=== PATIENT | female | born 1950 | race Caucasian/White ===

== ENCOUNTER → 2017-08-14 | Outpatient (CLI) | payer BC | LOC: PLD 10:25 → LAB SHORT 10:25 | DX: L82.1 Other seborrheic keratosis (principal) | CPT/HCPCS: 88305 ==

== ENCOUNTER 2017-08-16 07:19 | Day surgery (SDC) | payer BC | END 2017-08-16 23:01 | disposition home or self-care (01) | LOC: MOI US 07:19 | PROC: 0HBV3ZX Excision of Bilateral Breast, Percutaneous Approach, Diagnostic (ICD-10-PCS; principal; 2017-08-16) | DX: C50.911 Malignant neoplasm of unspecified site of right female breast (principal); Z17.1 Estrogen receptor negative status [ER-] | CPT/HCPCS: 19083; 77066; 88305; 88360; A4648; G0279 ==

== ENCOUNTER 2017-09-04 06:23 | Day surgery (SDC) | payer BC ==
[~2017-09-04] VITALS: Ht 162.6 cm; Wt 76.2 kg
[~2017-09-04 06:23] MED LIST: Budeprion Xl300 MG PO
== END 2017-09-04 22:48 | disposition home or self-care (01) ==
LOC: ORSCMMR 06:23 → ORD 09:00 → ORSCMMR 22:48
PROVIDERS: Surgery
PROC: B5181ZA Fluoroscopy of Superior Vena Cava using Low Osmolar Contrast, Guidance (ICD-10-PCS; principal; 2017-09-04 09:00)
PROC: 02HV33Z Insertion of Infusion Device into Superior Vena Cava, Percutaneous Approach (ICD-10-PCS; principal; 2017-09-04 09:00)
DX: C50.811 Malignant neoplasm of overlapping sites of right female breast (principal); F17.210 Nicotine dependence, cigarettes, uncomplicated
CPT/HCPCS: 77001; C1788; J0690; J1100; J1642; J2250; J2370; J2405; J3010; J7120

== ENCOUNTER 2018-02-14 08:19 | Day surgery (SDC) | payer OTHER ==
[2018-02-14] MEDS ORDERED: Omeprazole20 M1 PO (14:12)
[2018-02-14] MEDS ORDERED: Advil200 M1 PO (14:13)
== END 2018-02-14 23:10 | disposition home or self-care (01) ==
LOC: MOI US 08:19
DX: N63.20 Unspecified lump in the left breast, unspecified quadrant (principal)
CPT/HCPCS: 19285; 77065

== ENCOUNTER 2018-02-21 07:56 | Day surgery (SDC) | payer OTHER ==
[~2018-02-21] VITALS: Ht 162.6 cm; Wt 64.9 kg
[~2018-02-21 07:56] MED LIST changes: +Advil200 M1 PO; +Omeprazole20 M1 PO
--- NOTE | 2018-02-21 10:14 | NUR ---
02/21/18 Jam4 Mick Mensah FIRST ATTMP BY RN IN LEFT FOREARM WAS UNSUCCESSFUL. SECOND ATTEMP IN AC WORKS WELL. PT TOLERATED PROCEDURE WELL.
--- NOTE | 2018-02-21 14:35 | NUR ---
02/21/18 1435 Matthew Maravilla PATIENT INTO SDU RECLINER RESTING, REPORTS 8/10 PAIN AT SURGICAL SITE, PER MD ORDERS GAVE IV PAIN MEDICATION. PATIENT VSS, TOLERATING PO FLUIDS. WILL CONTINUE TO MONITOR
== END 2018-02-21 16:30 | disposition home or self-care (01) ==
LOC: ORSCSDS 07:56 → RAD 08:30 → NM 09:00 → ORSCSDS 16:30
PROVIDERS: Surgery
PROC: 0HTT0ZZ Resection of Right Breast, Open Approach (ICD-10-PCS; principal; 2018-02-21 10:00)
PROC: 07B50ZX Excision of Right Axillary Lymphatic, Open Approach, Diagnostic (ICD-10-PCS; principal; 2018-02-21 10:00)
PROC: 0HBU0ZX Excision of Left Breast, Open Approach, Diagnostic (ICD-10-PCS; principal; 2018-02-21 10:00)
DX: C50.811 Malignant neoplasm of overlapping sites of right female breast (principal); N63.20 Unspecified lump in the left breast, unspecified quadrant; Z79.899 Other long term (current) drug therapy
CPT/HCPCS: 38792; 76098; 88305; 88307; 88342; A9520; J0690; J1100; J2250; J2370; J2405; J3010

== ENCOUNTER 2018-12-03 06:27 | Day surgery (SDC) | payer OTHER ==
[~2018-12-03] VITALS: Ht 162.6 cm; Wt 155.8 kg
[~2018-12-03 06:27] MED LIST changes: +ABILIFY MYCITE2 MG PO
--- NOTE | 2018-12-03 07:08 | NUR ---
12/03/18 0708 Mick Mensah PT RESTING COMFORTABLY WITH DAUGHTER AT BEDSIDE. CALL LIGHT WITHIN REACH.
--- NOTE | 2018-12-03 08:43 | NUR ---
12/03/18 0843 Ernestina Brooke IV WAS REMOVED IN OR. IV SITE DRESSING D.I
== END 2018-12-03 08:39 | disposition home or self-care (01) ==
LOC: ORSCSDS 06:27
PROVIDERS: Surgery
PROC: 0JPV0WZ Removal of Totally Implantable Vascular Access Device from Upper Extremity Subcutaneous Tissue and Fascia, Open Approach (ICD-10-PCS; principal; 2018-12-03 07:30)
DX: Z45.2 Encounter for adjustment and management of vascular access device (principal); Z85.3 Personal history of malignant neoplasm of breast; I10 Essential (primary) hypertension; F41.9 Anxiety disorder, unspecified; Z79.899 Other long term (current) drug therapy
CPT/HCPCS: J2250; J2704; J7120

== ENCOUNTER 2022-12-29 15:02 | Emergency (ER) | payer OTHER ==
[~2022-12-29] VITALS: Ht 170.2 cm; Wt 65.8 kg
[2022-12-29 18:00] VITALS: BP 103/75
[2022-12-29] MEDS ORDERED: CEPH500 PO (18:06)
== END 2022-12-29 18:31 | disposition home or self-care (01) ==
LOC: ER 15:02
DX: S01.511A Laceration without foreign body of lip, initial encounter (principal); M54.6 Pain in thoracic spine; W18.30XA Fall on same level, unspecified, initial encounter; F17.200 Nicotine dependence, unspecified, uncomplicated
CPT/HCPCS: 12011; 70450; 70486; 71045; 72070; 72100; 72170; 99283-25; A9270

== ENCOUNTER → 2024-04-13 | Outpatient (CLI) | payer OTHER ==
[~2024-04-13] MED LIST changes: +CEPH500 PO; +OLME20 PO; +TIMO.25OPS BOTHEYES
[2024-04-13 13:36] LABS: Albumin, Blood 2.5 g/dL (3.4-5.0); Albumin/Globulin Ratio 0.6 (0.8-1.8); Bun/Creatinine Ratio 9.3 (12.0-20.0); Calcium, Blood 9.5 mg/dL (8.5-10.1); Creatinine, Blood 0.97 mg/dL (0.40-1.00); Globulin, Blood 4.1 g/dL (2.2-4.0); Potassium, Blood 3.7 mmol/L (3.5-5.5); Total Protein, Blood 6.6 g/dL (6.4-8.2)
[2024-04-13 14:37] LABS: BASOPHILS ABSOLUTE AUTO 0.03 K/mm3 (0.00-0.23); BASOPHILS PERCENT AUTO 0 % (0-2); EOSINOPHILS PERCENT AUTO 0 % (0-6); Hematocrit 37.7 % (33.0-51.0); IMMATURE GRAN ABSOLUTE AUTO 0.07 K/mm3 (0.00-0.10); IMMATURE GRAN PERCENT AUTO 1 % (0-1); LYMPHOCYTES ABSOLUTE AUTO 1.07 K/mm3 (0.84-5.20); LYMPHOCYTES PERCENT AUTO 9 % (21-46); MONOCYTES ABSOLUTE AUTO 1.17 K/mm3 (0.16-1.47); MONOCYTES PERCENT AUTO 10 % (4-13); Mean Corpuscular Volume 87 fL (80-100); NEUTROPHILS PERCENT AUTO 80 % (41-73); Platelet Count 228 K/mm3 (150-400); RDW Coefficient Variation 11.5 % (11.7-14.2); RDW Standard Deviation 37.1 fL (35.1-46.3); Red Blood Cell Count 4.33 M/mm3 (3.80-5.20); White Blood Cell Count 11.74 K/mm3 (4.00-11.30)
== END ==
LOC: LAB SHORT 13:16 → LAB 13:16
PROVIDERS: Family Medicine
DX: E86.0 Dehydration (principal)
CPT/HCPCS: 80053; 85025

== ENCOUNTER 2024-04-14 15:52 | Inpatient (IN) | payer OTHER ==
[~2024-04-14] VITALS: Ht 162.6 cm; Wt 75.0 kg
[~2024-04-14 15:52] MED LIST changes: -AMOCLA875 PO; -DOXY100 PO; -FURO20 PO; -OLME20 PO; -Prednisone20 MG PO; -TIMO.25OPS BOTHEYES
[2024-04-14] MEDS ORDERED: CefTRIAXone Sodium 1,000 MG in NS 100 ML IV ONE (16:50)
[2024-04-14] MEDS ORDERED: NS 1,000 ML IV SCH ×2 (19:50→20:40)
[2024-04-14] MEDS ORDERED: Ipratropium/Albuterol SulF 2.5-0.5MG/3 ML Amp INH SCH (20:35)
[2024-04-14] MEDS ORDERED: Albuterol 2.5 MG/3 ML VIAL INH PRN (20:40)
[2024-04-14] MEDS ORDERED: LORazepam 1 MG Tab PO PRN (20:40)
[2024-04-14] MEDS ORDERED: Ondansetron HCl 2 MG / ML 2ML Vial IV PRN (20:40)
[2024-04-14] MEDS ORDERED: Magnesium Sulf 2 GM/Water 50ML 50 ML IV STA (20:43)
[2024-04-14] MEDS ORDERED: Guaifenesin/Dextromethorphan Syrup 5 ML UDC PO PRN (20:45)
[2024-04-14] MEDS ORDERED: NS 500 ML IV ONE (21:00)
[2024-04-14] MEDS ORDERED: Potassium Chloride 20 MEQ TabCR PO ONE (21:00)
[2024-04-14] MEDS ORDERED: CefTRIAXone Sodium 1,000 MG in NS 100 ML IV SCH ×2 (21:35→21:43)
[2024-04-14] MEDS ORDERED: Azithromycin 500 MG in NS 250 ML IV SCH (21:44)
[2024-04-14 22:37] LABS: CORONAVIRUS COVID-19 AG Negative (NEGATIVE); INFLUENZA A AG Negative (NEGATIVE); INFLUENZA B AG Negative (NEGATIVE)
[2024-04-14 22:49] LABS: Base Excess Venous -8.2 mmol/L; Bicarbonate Venous 18.8 mmol/L (24.0-30.0); PCO2 Venous 29.7 mmHg (38-42); pH Blood Venous 7.37 (7.34-7.37)
[2024-04-14 23:04] VITALS: BP 151/83
[2024-04-14] MEDS ORDERED: TIMO.25OPS BOTHEYES ×2 (23:20)
[2024-04-14] MEDS ORDERED: OLME20 PO ×2 (23:21)
[2024-04-15] VITALS (9 sets, daily range): BP systolic 132–173; BP diastolic 75–98
[2024-04-15] MEDS ORDERED: MethylPREDNISolone Sod Succ 125 MG Vial IV SCH
--- NOTE | 2024-04-15 01:11 | NUR ---
ADMIT NOTE FOR 04/14/24 7152 REPORT WAS RECEIVED FROM THE ER. PT WAS BROUGHT DOWN ON THE GURNEY AND TRANSFERRED TO THE BED IN ROOM 357. PT ALERT ORIENTED X 4 ABLE TO VERBALIZE NEEDS. SHES VERY SOB WITH ANY TYPE OF EXERTION. I CHANGED HER BRIEF AND SHE DESATTED DOWN TO 75% ON 8L VIA NC. I CHANGED HER OVER TO A OXIMASK ON 6L AND SHES SATTING AT 90%. SHE C/O ANXIETY MEDICATED WITH ATIVAN WITH LITTLE RELIEF. LUNG SOUNDS WITH EXPIRATORY WHEEZES AND SHES USING HERABD MUSCLES TO BREATHE AND IS VERY TACHPNEIC. SHE REMAINS ON A CONTINUOUS PULSE OX. SHE WAS GIVEN A DOSE OF ROCEPHIN AND ZITHROMAX. RT IN TO GIVE HER A HHN TX. CONTINUES WITH A NONPRODUCTIVE COUGH AND CONGESTION. RESTING IN BED AT THIS TIME WITH CALL LIGHT IN REACH
[2024-04-15 01:41] LABS: Calcium, Blood 9.7 mg/dL (8.5-10.1); Creatinine, Blood 0.52 mg/dL (0.40-1.00); Potassium, Blood 4.1 mmol/L (3.5-5.5)
[2024-04-15] MEDS ORDERED: MethylPREDNISolone Sod Succ 125 MG Vial ONE ×2 (02:10→02:14)
[2024-04-15] MEDS ORDERED: MethylPREDNISolone Sod Succ 125 MG Vial IV ONE (02:15)
--- NOTE | 2024-04-15 02:25 | NUR ---
ASSUMPTION NOTE: THIS RN TO ASSUME CARE OF PATIENT THAT WAS A RAPID RESPONSE FROM MEDICAL FLOOR 357. PATIENT BROUGHT DOWN VIA BED ON BIPAP MACHINE ALERT AND ORIENTED X4. IS ABLE TO MAKE NEEDS KNOWN AND USES CALL LIGHT APPROIRATELY. PATIENT HAS A AUDIBLE EXPIRATORY WHEEZE AND DIMINSHED IN THE BASES. PATIENT IS ON TELE SHOWING SINUS RYTHM WITH RATE 94, DENIES CHEST PAIN/PRESSURE. PATIENT HAS BEEN COUGHING OFF AND ON SINCE ARRIVAL AND STATES SHE HAS HAD THE COUGH FOR SEVERAL DAYS NOW. PATIENT STATES SHE IS CONTINENT OF BOTH BOWL AND URINE, NOTIFIED THAT SHE WILL STAY BEDREST CURERNTLY DUE TO PATIENT DESATTING WITH EXERTION. A PUREWICK WAS OFFERED AND PATIENT OPTED TO USE A BED CALDERON FOR NOW. PATIENT IS SLEEPING CURRENTLY, CALL LIGHT WITHIN REACH AND BED IN LOWEST POSITION.
[2024-04-15 02:40] LABS: Albumin, Blood 2.3 g/dL (3.4-5.0); Albumin/Globulin Ratio 0.6 (0.8-1.8); Bilirubin, Total 0.6 mg/dL (0.1-1.0); Total Protein, Blood 6.3 g/dL (6.4-8.2)
--- NOTE | 2024-04-15 02:40 | NUR ---
AT 0207 I WENT INTO THE PTS ROOM AND SHE WAS DESATTING DOWN TO 83% ON 10l VIA OXIMASK. SHE WAS ALSO VERY DIAPHORETIC AND HAVING A HARD TIME BREATHING. SHE WAS TACHPNEIC AND USING HER ACCESSORY MUSCLES TO BREATHE. WE TRIED TO UP HER OXYGEN AND SHE REMAINED HAVING TROUBLE BREATHING AND WAS DIAPHORETIC. WE CALLED A RAPID RESPONSE AND THE RESPONSE TEAM CAME UP TO SEE THE PT. AFTER EVALUATION SHE WAS PUT ON A BIPAP MACHINE AND TRANSFERRED TO PCU ROOM 19. I WENT DOWN TO PCU AND GAVE THE NURSE REPORT.
--- NOTE | 2024-04-15 03:03 | NUR ---
MD TO BEDSIDE: MD CAME TO BEDSIDE ONCE PAIENT WAS SETTLED IN, THIS RN NOTIFIED THAT PATIENT'S BLOOD PRESSURE HAS BEEN ELEVATED AND THE LAST BLOOD PRESSURE WAS SYSTOLIC IN THE 150'S AND PATIENT TAKES HOME MEDICATIONS FOR HYPERTENSION. MED REC HAS BEEN COMPLETED AND MD NOTIFIED. STATED "WE WILL LEAVE IT FOR NOW". PATIENT RESTING WITH THE BIPAP MASK ON, HAS CALL LIGHT WITHIN REACH AND BED IN LOWEST POSITION, STATING SHE IS NOT NEEDING ANYTHING AT THIS MOMENT.
[2024-04-15] MEDS ORDERED: Piperacillin/Tazobactam Sod 4.5 GM in NS 100 ML IV SCH (04:07)
[2024-04-15] MEDS ORDERED: Vancomycin HCL 2,000 MG in NS 500 ML IV ONE (04:15)
[2024-04-15 04:30] LABS: BASOPHILS ABSOLUTE AUTO 0.04 K/mm3 (0.00-0.23); BASOPHILS PERCENT AUTO 0 % (0-2); EOSINOPHILS PERCENT AUTO 0 % (0-6); Hematocrit 35.3 % (33.0-51.0); IMMATURE GRAN ABSOLUTE AUTO 0.11 K/mm3 (0.00-0.10); IMMATURE GRAN PERCENT AUTO 1 % (0-1); LYMPHOCYTES ABSOLUTE AUTO 0.58 K/mm3 (0.84-5.20); LYMPHOCYTES PERCENT AUTO 4 % (21-46); MONOCYTES ABSOLUTE AUTO 1.22 K/mm3 (0.16-1.47); MONOCYTES PERCENT AUTO 7 % (4-13); Mean Corpuscular Volume 87 fL (80-100); Mean Platelet Volume 9.9 fL (9.1-12.4); NEUTROPHILS ABSOLUTE AUTO 14.76 K/mm3 (1.96-9.15); NEUTROPHILS PERCENT AUTO 88 % (41-73); Platelet Count 255 K/mm3 (150-400); RDW Coefficient Variation 11.7 % (11.7-14.2); RDW Standard Deviation 37.8 fL (35.1-46.3); Red Blood Cell Count 4.04 M/mm3 (3.80-5.20); White Blood Cell Count 16.71 K/mm3 (4.00-11.30)
[2024-04-15 05:07] LABS: Base Excess Venous -6.8 mmol/L; PCO2 Venous 33.9 mmHg (38-42); pH Blood Venous 7.35 (7.34-7.37)
[2024-04-15 05:15] LABS: BASOPHILS ABSOLUTE AUTO 0.02 K/mm3 (0.00-0.23); BASOPHILS PERCENT AUTO 0 % (0-2); EOSINOPHILS PERCENT AUTO 0 % (0-6); Hematocrit 34.5 % (33.0-51.0); Hemoglobin 12.8 g/dL (11.5-16.0); IMMATURE GRAN ABSOLUTE AUTO 0.09 K/mm3 (0.00-0.10); IMMATURE GRAN PERCENT AUTO 1 % (0-1); LYMPHOCYTES ABSOLUTE AUTO 0.46 K/mm3 (0.84-5.20); LYMPHOCYTES PERCENT AUTO 4 % (21-46); MONOCYTES ABSOLUTE AUTO 0.52 K/mm3 (0.16-1.47); MONOCYTES PERCENT AUTO 4 % (4-13); Mean Corpuscular HGB 32.7 pg (26.0-34.0); Mean Corpuscular HGB Conc 37.1 g/dL (31.5-36.5); Mean Corpuscular Volume 88 fL (80-100); Mean Platelet Volume 9.9 fL (9.1-12.4); NEUTROPHILS ABSOLUTE AUTO 12.08 K/mm3 (1.96-9.15); NEUTROPHILS PERCENT AUTO 92 % (41-73); Platelet Count 229 K/mm3 (150-400); RDW Coefficient Variation 11.9 % (11.7-14.2); RDW Standard Deviation 38.4 fL (35.1-46.3); Red Blood Cell Count 3.91 M/mm3 (3.80-5.20); White Blood Cell Count 13.17 K/mm3 (4.00-11.30)
--- NOTE | 2024-04-15 05:46 | NUR ---
SHIFT SUMMARY: PATIENT IS ALERT AND ORIENTED X4, DOES TAKE A MINUTE TO RESPOND TO QUESTIONS BUT DOES ANSWER CORRECTLY. ON TELE SHOWING SINUS RYTHM WITH RATE IN THE 90'S. PATIENT SATTING >92% ON BIPAP MACHINE, BEING FOLLOWED BY RT. PATIENT WAS A RAPID REPONSE FROM MEDICAL FLOOR, SEE PREVIOUS NOTES FOR MORE INFORMATION. PATIENT WAS ABLE TO GET SOME SLEEP ONCE COMING ONTO THE FLOOR. A NEW LINE WAS PLACED DUE TO MULTIPULE ANTIBIOTICS PER EMAR TO RUN. PATIENT DOES HAVE A SKIN TEAR ON THE LEFT AC. SCD'S ARE PLACED AND PATIENT AWARE SHE WILL BE BEDREST DUE TO RESPIRATORY NEEDS, SHE DESTS W/ EXERTION. PATIENT HAS CALL LIGHT WITHIN REACH, BED IN LOWEST POSITION AND NOT STATING SHE NEEDS ANYTHING CURRENTLY.
[2024-04-15 06:32] LABS: Calcium, Blood 9.6 mg/dL (8.5-10.1); Creatinine, Blood 0.56 mg/dL (0.40-1.00); Magnesium, Blood 1.9 mg/dL (1.6-2.4); Potassium, Blood 3.8 mmol/L (3.5-5.5)
[2024-04-15] MEDS ORDERED: Thiamine HCl 100 MG Tab PO SCH (09:00)
[2024-04-15] MEDS ORDERED: Folic Acid 1 MG TAB PO SCH (09:00)
[2024-04-15] MEDS ORDERED: Enoxaparin 40 MG/0.4 ML SYR SC SCH (09:00)
[2024-04-15] MEDS ORDERED: Multivitamins 1 Tab PO SCH (09:00)
[2024-04-15 12:26] LABS: Adenovirus Not Detected (NOT DETECT); Bordetella pertussis Not Detected (NOT DETECT); Chlamydophila pneumoniae Not Detected (NOT DETECT); Coronavirus 229E Not Detected (NOT DETECT); Coronavirus HKU1 Not Detected (NOT DETECT); Coronavirus NL63 Not Detected (NOT DETECT); Coronavirus OC43 Not Detected (NOT DETECT); Human Metapneumovirus Not Detected (NOT DETECT); Human Rhinovirus/Enterovirus Not Detected (NOT DETECT); Influenza A/2009-H1 Not Detected (NOT DETECT); Influenza A/H1 Not Detected (NOT DETECT); Influenza A/H3 Not Detected (NOT DETECT); Influenza B Not Detected (NOT DETECT); Mycoplasma pneumoniae Not Detected (NOT DETECT); Parainfluenza Virus 1 Not Detected (NOT DETECT); Parainfluenza Virus 2 Not Detected (NOT DETECT); Parainfluenza Virus 3 Not Detected (NOT DETECT); Parainfluenza Virus 4 Not Detected (NOT DETECT); Respiratory Syncytial Virus Not Detected (NOT DETECT); SARS-Cov-2 (COVID-19), BioFire Not Detected (NOT DETECT)
[2024-04-15] MEDS ORDERED: Vancomycin HCL 1,500 MG in NS 250 ML IV SCH (17:00)
[2024-04-15 18:15] LABS: Bun/Creatinine Ratio 29.3 (12.0-20.0); Calcium, Blood 9.9 mg/dL (8.5-10.1); Creatinine, Blood 0.55 mg/dL (0.40-1.00); Potassium, Blood 3.6 mmol/L (3.5-5.5)
--- NOTE | 2024-04-15 18:20 | NUR ---
PT SUMMARY; PT HAS BEEN ON 7-8; OF O2 VIA NASAL CANULA SATS KEPT ABOVE 90% ON BIPAP WHEN ASLEEP 14/ 30% FIO2, BREATHING TX PER RT GIVEN. PT HAS BEEN HAVING COUGHING SPITS COUGH MEDICINE GIVEN ONCE THIS MORNING AND WAS EFFECTIVE, UNABLE TO COUGH UP SPUTUM, RESPIRATORY PANEL CMAE BACK NEGATIVE. DIET TRANSITIONED TO SOFT BITE SIZE. PT 1PA TO USE BEDSIDE COMMODE, WAS UP IN THE CHAIR THIS MORNING FOR BREAKFAST. DAUGHTER CAME IN TO VIST AND WAS GIVEN UPDATE REGARDING PT'S STATUS. NO OTHER ISSUES AT THIS TIME, VITALS HRR 90'S SR, SBP 130-160'S, AFEBRILE. PT NOW RESTING IN BED CALL LIGHTS IN REACH WILL REPORT TO ONCOMING SHIFT
[2024-04-15] MEDS ORDERED: CefTRIAXone Sodium 1,000 MG in NS 100 ML IV SCH (21:00)
[2024-04-16] VITALS (7 sets, daily range): BP systolic 135–161; BP diastolic 74–104
[2024-04-16 04:16] LABS: Albumin/Globulin Ratio 0.6 (0.8-1.8); Bilirubin, Total 0.7 mg/dL (0.1-1.0); Bun/Creatinine Ratio 27.6 (12.0-20.0); Calcium, Blood 9.9 mg/dL (8.5-10.1); Creatinine, Blood 0.62 mg/dL (0.40-1.00); Globulin, Blood 3.6 g/dL (2.2-4.0); Potassium, Blood 3.5 mmol/L (3.5-5.5); Total Protein, Blood 5.6 g/dL (6.4-8.2)
[2024-04-16 05:10] LABS: BASOPHILS ABSOLUTE AUTO 0.02 K/mm3 (0.00-0.23); BASOPHILS PERCENT AUTO 0 % (0-2); EOSINOPHILS PERCENT AUTO 0 % (0-6); Hematocrit 31.4 % (33.0-51.0); Hemoglobin 11.7 g/dL (11.5-16.0); IMMATURE GRAN ABSOLUTE AUTO 0.09 K/mm3 (0.00-0.10); IMMATURE GRAN PERCENT AUTO 1 % (0-1); LYMPHOCYTES ABSOLUTE AUTO 0.56 K/mm3 (0.84-5.20); LYMPHOCYTES PERCENT AUTO 4 % (21-46); MONOCYTES ABSOLUTE AUTO 0.91 K/mm3 (0.16-1.47); MONOCYTES PERCENT AUTO 6 % (4-13); Mean Corpuscular HGB 32.9 pg (26.0-34.0); Mean Corpuscular HGB Conc 37.3 g/dL (31.5-36.5); Mean Corpuscular Volume 88 fL (80-100); Mean Platelet Volume 10.9 fL (9.1-12.4); NEUTROPHILS ABSOLUTE AUTO 13.31 K/mm3 (1.96-9.15); NEUTROPHILS PERCENT AUTO 89 % (41-73); Platelet Count 227 K/mm3 (150-400); RDW Standard Deviation 38.9 fL (35.1-46.3); Red Blood Cell Count 3.56 M/mm3 (3.80-5.20); White Blood Cell Count 14.89 K/mm3 (4.00-11.30)
--- NOTE | 2024-04-16 06:10 | NUR ---
SHIFT SUMMARY A/OX4, OBEYS COMMANDS, VERBALIZES NEEDS. SLEPT THROUGH THE MAJORITY OF THE SHIFT. ON 6L NC WHEN AWAKE, ON AVAP 40% WHILE ASLEEP. ON 2L PRN BASELINE. PT TOLERATED BIPAP WELL AND WORE THROUGH THE NIGHT. BP ELEVATED AT TIMES. HR 50 S-60 S. PULSES FAINTLY PALPABLE DUE TO EDEMA. CAPILLARY REFILL LESS THAN 3 SECONDS. PT DENIES CHEST PAIN OR PRESSURE. ON BEDREST AT THIS TIME DUE TO INCREASED OXYGEN DEMAND BUT ABLE TO REPOSITION SELF IN BED. PUREWICK IN PLACE AND DRAINING YELLOW URINE TO SUCTION. NO ACUTE EVENTS THIS SHIFT
[2024-04-16] MEDS ORDERED: Timolol 0.25% Opth Soln 5 ml BOTHEYES SCH (09:00)
[2024-04-16 17:19] LABS: Phosphorus, Blood 1.5 mg/dL (2.5-4.9)
[2024-04-16 17:25] LABS: Vancomycin, Trough 21.6 ug/mL (5.0-10.0)
--- NOTE | 2024-04-16 18:15 | NUR ---
PT SUMMARY; NO ACUTE CHANGE FOR THE SHIFT, PT REMAINS ON 8-10L OF O2 VIA NASAL CANNULA SATS KEPT ABOVE90%, BIPAP AT THE BEDSIDE IF NEEDED PT HAD IT ON WHILE SLEEPING FOR THE SHIFT TOLERATED WELL. VITALS HRR SR 90'S, SBP 160'S, AFEBRILE. SOB WITH EXERTION PT HAS BEEN GETING UP USING THE BSC AND UP TO CHAIR WITH MINIMAL ASSISTANCE. POOR APPETITE ROBOTYPE OPERATOR ABLE TO COME BY AND CHAT WITH THE PT. DAUGHTER CAME IN WELL TO VISIT ABLE TO BRING IN ADVNCE DIRECTIVE FROM HOME MELANI FROM PALLIATIVE RN ABLE TO FILL OUT POLST FORM, PT NOW DNR PER CODE STATUS, DNR BAND IN PLACE ON RIGHT ARM. NO OTHER ISSUES REPORTED FOR THE SHIFT WILL REPORT TO ONCOMING SHIFT
[2024-04-17 04:17] VITALS: BP 138/74
[2024-04-17 04:59] LABS: BASOPHILS ABSOLUTE AUTO 0.02 K/mm3 (0.00-0.23); BASOPHILS PERCENT AUTO 0 % (0-2); EOSINOPHILS PERCENT AUTO 0 % (0-6); Hematocrit 30.6 % (33.0-51.0); Hemoglobin 11.1 g/dL (11.5-16.0); IMMATURE GRAN ABSOLUTE AUTO 0.08 K/mm3 (0.00-0.10); IMMATURE GRAN PERCENT AUTO 1 % (0-1); LYMPHOCYTES ABSOLUTE AUTO 0.82 K/mm3 (0.84-5.20); LYMPHOCYTES PERCENT AUTO 7 % (21-46); MONOCYTES PERCENT AUTO 5 % (4-13); Mean Corpuscular HGB 32.5 pg (26.0-34.0); Mean Corpuscular HGB Conc 36.3 g/dL (31.5-36.5); Mean Corpuscular Volume 90 fL (80-100); NEUTROPHILS ABSOLUTE AUTO 10.99 K/mm3 (1.96-9.15); NEUTROPHILS PERCENT AUTO 88 % (41-73); Platelet Count 304 K/mm3 (150-400); RDW Coefficient Variation 12.3 % (11.7-14.2); RDW Standard Deviation 40.2 fL (35.1-46.3); Red Blood Cell Count 3.42 M/mm3 (3.80-5.20); White Blood Cell Count 12.51 K/mm3 (4.00-11.30)
[2024-04-17] MEDS ORDERED: Vancomycin HCL 1,250 MG in NS 250 ML IV SCH (05:00)
[2024-04-17 05:43] LABS: Albumin/Globulin Ratio 0.6 (0.8-1.8); Bilirubin, Total 0.8 mg/dL (0.1-1.0); Bun/Creatinine Ratio 28.9 (12.0-20.0); Calcium, Blood 9.9 mg/dL (8.5-10.1); Creatinine, Blood 0.69 mg/dL (0.40-1.00); Globulin, Blood 3.3 g/dL (2.2-4.0); Potassium, Blood 3.7 mmol/L (3.5-5.5); Total Protein, Blood 5.3 g/dL (6.4-8.2)
--- NOTE | 2024-04-17 06:12 | NUR ---
SHIFT SUMMARY ASSUMED CARE OF PT AT 1900. PT IS A/OX4. HEART SOUNDS REGULAR. LUNG SOUNDS COARSE T/O. PT REMAINED ON BIPAP T/O THE NOC. PT STATED FEELING BETER THIS AM AND WAS ABLE TO GET OUT OF BED TO SCALE WITHOUT DESATURATING. PT HAS A HAKING NONPRODUCTIVE COUGH. PT ON 9L NC AT REST.
[2024-04-17 08:17] VITALS: BP 146/99
[2024-04-17 11:31] VITALS: BP 155/94
[2024-04-17] MEDS ORDERED: Acetaminophen 325 MG TABLET PO PRN (12:40)
[2024-04-17] MEDS ORDERED: Benzonatate 100 MG Cap PO PRN (13:05)
[2024-04-17 15:33] VITALS: BP 160/79
[2024-04-17] MEDS ORDERED: MethylPREDNISolone Sod Succ 125 MG Vial IV SCH (16:00)
[2024-04-17] MEDS ORDERED: Losartan Potassium 50 MG Tab PO SCH (16:15)
[2024-04-17 17:41] VITALS: BP 157/88
--- NOTE | 2024-04-17 18:12 | NUR ---
PATIENT SUMMURY: A&OX3,ABLE TO MAKE NEEDS KNOWN, CALLS APPRORIATELY. HAS MOMENTS OF CONFUSION AND FORGETFULL AT TIMES.PT ON 5 LITERS OXYGEN VIA NC. STAYS ABOVE 90 SPO2. DESATS WITH ACTIVITES WITH INTERMITENT SOB. BIPAP IN ROOM ON STAND BY. BLOOD PRESSURE BECME ELEVETED TOWARDS END OF SHIFT. BP IN THE 160'S. PHYSICIAN NOTIFED ORDER PLACED. SEE VS. HEART RATE SINUS INTHE 80'S. DENIES CHEST PAIN. ONE ASSIST TO GET OUT OF BED AND USE THE COMODE. CONTINENT OF URINE AND BOWEL. PATIENT COMLAINED OF GENERALIZED PAIN AND COUGH PYSICIAN NOTIFED, ORDER PLACED. NO OTHER EVENTS. WILL REPORT TO ONCOMING RN.
[2024-04-17 20:00] VITALS: BP 150/83
[2024-04-18 00:27] VITALS: BP 168/90
[2024-04-18 04:44] VITALS: BP 178/86
[2024-04-18 04:52] LABS: BASOPHILS ABSOLUTE AUTO 0.01 K/mm3 (0.00-0.23); BASOPHILS PERCENT AUTO 0 % (0-2); EOSINOPHILS ABSOLUTE AUTO 0.01 K/mm3 (0.00-0.68); EOSINOPHILS PERCENT AUTO 0 % (0-6); Hemoglobin 12.2 g/dL (11.5-16.0); IMMATURE GRAN ABSOLUTE AUTO 0.12 K/mm3 (0.00-0.10); IMMATURE GRAN PERCENT AUTO 1 % (0-1); LYMPHOCYTES ABSOLUTE AUTO 0.73 K/mm3 (0.84-5.20); LYMPHOCYTES PERCENT AUTO 5 % (21-46); MONOCYTES ABSOLUTE AUTO 0.74 K/mm3 (0.16-1.47); MONOCYTES PERCENT AUTO 5 % (4-13); Mean Corpuscular HGB 32.9 pg (26.0-34.0); Mean Corpuscular HGB Conc 35.9 g/dL (31.5-36.5); Mean Corpuscular Volume 92 fL (80-100); Mean Platelet Volume 9.7 fL (9.1-12.4); NEUTROPHILS ABSOLUTE AUTO 12.14 K/mm3 (1.96-9.15); NEUTROPHILS PERCENT AUTO 88 % (41-73); Platelet Count 335 K/mm3 (150-400); RDW Coefficient Variation 12.4 % (11.7-14.2); RDW Standard Deviation 41.5 fL (35.1-46.3); Red Blood Cell Count 3.71 M/mm3 (3.80-5.20); White Blood Cell Count 13.75 K/mm3 (4.00-11.30)
[2024-04-18 05:16] LABS: Albumin, Blood 2.4 g/dL (3.4-5.0); Albumin/Globulin Ratio 0.7 (0.8-1.8); Calcium, Blood 9.9 mg/dL (8.5-10.1); Creatinine, Blood 0.66 mg/dL (0.40-1.00); Globulin, Blood 3.4 g/dL (2.2-4.0); Magnesium, Blood 1.9 mg/dL (1.6-2.4); Potassium, Blood 3.6 mmol/L (3.5-5.5); Total Protein, Blood 5.8 g/dL (6.4-8.2)
--- NOTE | 2024-04-18 06:28 | NUR ---
SHIFT SUMMARY PT TOLERATED SHIFT WELL. PT CONTINUES TO HAVE ISSUES WITH UNPRODUCTIVE, DRY COUGH OVERNIGHT. COUGH MEDICATIONS GIVEN BUT PT STATES THEY HAVE HAD LITTLE TO NO RELIEF. WILL CONTINUE TO MONITOR UNTIL REPORT PASSED TO DAY SHIFT TEAM.
[2024-04-18 07:30] VITALS: BP 173/103
[2024-04-18 11:01] VITALS: BP 169/79
[2024-04-18] MEDS ORDERED: Losartan Potassium 50 MG Tab PO ONE (12:10)
[2024-04-18] MEDS ORDERED: Furosemide 20 MG Tab PO SCH (13:00)
[2024-04-18] MEDS ORDERED: Spironolactone 25 MG Tab PO SCH (13:00)
[2024-04-18 16:07] VITALS: BP 153/85
[2024-04-18] MEDS ORDERED: NS 250 ML IV PRN (16:10)
[2024-04-18 16:59] LABS: Vancomycin, Trough 24.7 ug/mL (5.0-10.0)
--- NOTE | 2024-04-18 17:41 | NUR ---
SHIFT SUMMARY PT A&Ox4, CALLS AND COMMUNICATES NEEDS APPROPRIATELY. MOMENTS OF CONFUSION AND FORGETFUL AT TIMES, BETTER TODAY THAN YESTERDAY. BP ELEVATED AT START OF SHIFT, NOTIFIED PHYSICIAN - ORDERS PLACED. SBP NOW 150's, SINUS 80's, DENIES CP/PRESSURE. SpO2> 92% 3L VIA NC, REPORTS INTERMITTENT SOB. DESATS TO MID-HIGH 80's WITH ACTIVITY. C/O DRY, HACKING, NONPRODUCTIVE COUGH. 1 ASSIST WITH FWW, CONTINENT/INCONTINENT OF URINE, CONTINENT OF BOWEL. NO C/O PAIN. NO OTHER EVENTS, WILL REPORT TO ONCOMING RN.
[2024-04-18 20:00] VITALS: BP 139/84
[2024-04-19] VITALS: BP 134/68
[2024-04-19] MEDS ORDERED: MethylPREDNISolone Sod Succ 125 MG Vial IV SCH
[2024-04-19 04:00] VITALS: BP 148/72
[2024-04-19 04:01] LABS: BASOPHILS ABSOLUTE AUTO 0.01 K/mm3 (0.00-0.23); BASOPHILS PERCENT AUTO 0 % (0-2); EOSINOPHILS PERCENT AUTO 0 % (0-6); Hematocrit 31.9 % (33.0-51.0); Hemoglobin 11.3 g/dL (11.5-16.0); IMMATURE GRAN PERCENT AUTO 1 % (0-1); LYMPHOCYTES ABSOLUTE AUTO 0.65 K/mm3 (0.84-5.20); LYMPHOCYTES PERCENT AUTO 6 % (21-46); MONOCYTES ABSOLUTE AUTO 0.71 K/mm3 (0.16-1.47); MONOCYTES PERCENT AUTO 7 % (4-13); Mean Corpuscular HGB 32.7 pg (26.0-34.0); Mean Corpuscular HGB Conc 35.4 g/dL (31.5-36.5); Mean Corpuscular Volume 92 fL (80-100); Mean Platelet Volume 10.1 fL (9.1-12.4); NEUTROPHILS ABSOLUTE AUTO 8.77 K/mm3 (1.96-9.15); NEUTROPHILS PERCENT AUTO 86 % (41-73); Platelet Count 302 K/mm3 (150-400); RDW Coefficient Variation 12.4 % (11.7-14.2); RDW Standard Deviation 41.5 fL (35.1-46.3); Red Blood Cell Count 3.46 M/mm3 (3.80-5.20); White Blood Cell Count 10.24 K/mm3 (4.00-11.30)
[2024-04-19 04:20] LABS: Albumin, Blood 2.2 g/dL (3.4-5.0); Albumin/Globulin Ratio 0.7 (0.8-1.8); Bilirubin, Total 0.8 mg/dL (0.1-1.0); Bun/Creatinine Ratio 32.1 (12.0-20.0); Calcium, Blood 9.1 mg/dL (8.5-10.1); Creatinine, Blood 0.9 mg/dL (0.40-1.00); Globulin, Blood 3.1 g/dL (2.2-4.0); Phosphorus, Blood 3.2 mg/dL (2.5-4.9); Potassium, Blood 3.2 mmol/L (3.5-5.5); Total Protein, Blood 5.3 g/dL (6.4-8.2)
[2024-04-19] MEDS ORDERED: Vancomycin HCL 750 MG in NS 250 ML IV SCH (05:00)
[2024-04-19 07:12] VITALS: BP 156/85
[2024-04-19] MEDS ORDERED: Multivitamins-Minerals Liquid 15 ML Oral Syringe PO SCH (09:00)
[2024-04-19] MEDS ORDERED: Losartan Potassium 50 MG Tab PO SCH (09:00)
--- NOTE | 2024-04-19 09:55 | NUR ---
ASSUMTION OF CARE: ADOLFO IS IMPROVING WITH MOBILITY, UP TO THE CHAIR FOR MEALS, VANCO FINISHED INFUSING AND ZOSYN CURRENLTY RUNING. NARAYANN IS ALERT AND ORIENTED ABLE TO MAKE NEEDS KNOWN, PLEASANT AND COOPERATIVE, 2-3L VIA NC FOR SPO2 THAN 88%. PATIENT DENIES ISSUES WITH GI/. NO ACUTE CONCERNS FROM THIS RN. AT THIS TIME. DENIES CHEST PAIN PRESSURE OR SOB AT REST PLAN OF CARE CONTINUES
[2024-04-19 10:51] VITALS: BP 135/80
[2024-04-19 15:50] VITALS: BP 170/89
--- NOTE | 2024-04-19 18:40 | NUR ---
EOS: NO SIGNIFCANT CHANGES, FROM ASSUMPTION HAS BEEN UP AND MOVING IS SLIOWY HAS BECOME TIRED FROM THE EXERTION, IS CURRENLTY AT MRI ON 3L VIA NC, DENIES CHEST OAIN PRESSURE OR SOB AT REST. HAS BEEN FROM 1-3L VIA NC. NO ACUTE CONCERNS FROM THIS RN. PLAN OF CARE CONTINUES.
[2024-04-19 20:00] VITALS: BP 158/82
[2024-04-19] MEDS ORDERED: MethylPREDNISolone Sod Succ 40 MG VIAL IV SCH (21:00)
[2024-04-20 00:05] VITALS: BP 151/88
[2024-04-20 04:16] VITALS: BP 147/79
[2024-04-20 05:30] LABS: Bun/Creatinine Ratio 38.3 (12.0-20.0); Calcium, Blood 8.9 mg/dL (8.5-10.1); Creatinine, Blood 0.73 mg/dL (0.40-1.00); Potassium, Blood 3.1 mmol/L (3.5-5.5)
--- NOTE | 2024-04-20 05:32 | NUR ---
PT RESTED AT INTERVALS, DENIES PAIN, O2 AT [address] PT UNABLE TO COUGH UP SPUTUM FOR SPECIMEN. PT UP TO BSC WITH ASSISTANCE TIMES 3. CALL LIGHT IN REACH, NO S/S OF DISTRESS NOTED
[2024-04-20] MEDS ORDERED: Potassium Chloride 20 MEQ/15 ML UDC PO ONE (07:00)
[2024-04-20 08:18] VITALS: BP 162/125
[2024-04-20] MEDS ORDERED: Potassium Chloride 20 MEQ TabCR PO SCH (09:00)
[2024-04-20 11:30] VITALS: BP 141/89
[2024-04-20 15:43] VITALS: BP 172/91
--- NOTE | 2024-04-20 16:58 | NUR ---
SHIFT SUMMARY PT REMAINS ALERT AND ORIENTED. TELEMETRY DISCONTINUED THIS SHIFT. O2 SATS HAVE REMAINED ABOVE 90% ON 2L NC. PT DENIES ANY PAIN. PT REQUESTED SOMETHING TO HELP WITH SLEEP THIS EVENING AND DR. HUA NOTIFIED. PT UP AMBULATING IN ROOM MULTIPLE TIMES THIS SHIFT WITH SBA. PT COUGHING ON AND OFF THIS SHIFT, BUT NO PRODUCTION. WILL REPORT OFF TO ONCOMING RN
[2024-04-20 20:00] VITALS: BP 161/90
[2024-04-20] MEDS ORDERED: Mirtazapine 15 MG Tab PO SCH (21:00)
[2024-04-21 04:21] VITALS: BP 155/92
[2024-04-21 05:02] LABS: BASOPHILS ABSOLUTE AUTO 0.01 K/mm3 (0.00-0.23); BASOPHILS PERCENT AUTO 0 % (0-2); EOSINOPHILS ABSOLUTE AUTO 0.02 K/mm3 (0.00-0.68); EOSINOPHILS PERCENT AUTO 0 % (0-6); Hematocrit 34.6 % (33.0-51.0); Hemoglobin 12.2 g/dL (11.5-16.0); IMMATURE GRAN ABSOLUTE AUTO 0.07 K/mm3 (0.00-0.10); IMMATURE GRAN PERCENT AUTO 1 % (0-1); LYMPHOCYTES ABSOLUTE AUTO 1.05 K/mm3 (0.84-5.20); LYMPHOCYTES PERCENT AUTO 10 % (21-46); MONOCYTES ABSOLUTE AUTO 0.53 K/mm3 (0.16-1.47); MONOCYTES PERCENT AUTO 5 % (4-13); Mean Corpuscular HGB 32.6 pg (26.0-34.0); Mean Corpuscular HGB Conc 35.3 g/dL (31.5-36.5); Mean Corpuscular Volume 93 fL (80-100); Mean Platelet Volume 10.2 fL (9.1-12.4); NEUTROPHILS ABSOLUTE AUTO 8.81 K/mm3 (1.96-9.15); NEUTROPHILS PERCENT AUTO 84 % (41-73); Platelet Count 279 K/mm3 (150-400); RDW Coefficient Variation 12.3 % (11.7-14.2); RDW Standard Deviation 41.7 fL (35.1-46.3); Red Blood Cell Count 3.74 M/mm3 (3.80-5.20); White Blood Cell Count 10.49 K/mm3 (4.00-11.30)
[2024-04-21 05:30] LABS: Bun/Creatinine Ratio 33.2 (12.0-20.0); Calcium, Blood 8.7 mg/dL (8.5-10.1); Creatinine, Blood 0.78 mg/dL (0.40-1.00); Potassium, Blood 3.9 mmol/L (3.5-5.5)
--- NOTE | 2024-04-21 06:03 | NUR ---
PT RESTED COMFORTABLY, UP TO BATHROOM WITH STANDBY ASSISTANCE. PT DENIES PAIN OR SHORTNESS OF BREATH, CALL LIGHT IN REACH. NO S/S OF DISTRESS NOTED
--- NOTE | 2024-04-21 07:05 | NUR ---
ASSUMPTION OF CARE: THIS RN TO ASSUME CARE OF PT FROM NUMERICAL CONTROL ROUTER OPERATOR RN. PT RESTING IN BED WITH EQUAL NONLABORED RESPIRATIONS. ON RA AND MAINTAINING O2 SATS AT 94%. NADN. PT ALERT AND DENIES ANY NEEDS. CALL LIGHT IN REACH.
[2024-04-21 07:48] VITALS: BP 156/90
[2024-04-21] MEDS ORDERED: Amoxicillin/Clavulanate K 875 MG Tab PO SCH (09:00)
[2024-04-21] MEDS ORDERED: PredniSONE 20 MG Tab PO SCH (09:00)
[2024-04-21] MEDS ORDERED: Doxycycline Hyclate 100 MG TAB PO SCH (09:00)
[2024-04-21] MEDS ORDERED: AMOCLA875 PO ×2 (12:46)
[2024-04-21] MEDS ORDERED: FURO20 PO ×2 (12:47)
[2024-04-21] MEDS ORDERED: DOXY100 PO ×2 (12:47)
[2024-04-21] MEDS ORDERED: Prednisone20 MG PO ×2 (12:48)
[2024-04-21 13:10] VITALS: BP 130/73
--- NOTE | 2024-04-21 13:37 | NUR ---
DISCHAGED NOTE: PT DISCHARGED TO HOME BY THIS RN. THIS RN WENT OVER WRITTEN AND VERBAL DC INSTRUCTIONS AND WAS INSTRUCTED TO COME BACK TO THE ED IF SYMPTOMS WORSEN. FLORIN CAME TO BEDSIDE AND EDUCATED PT ABOUT HOME O2 USE. PT DC'S TO HOME WITH OXYGEN. PTS IV WAS REMOVED WITH CATHETER INTACT. DENIES ANY FURTHER QUESTIONS OR CONCERNS AT THIS TIME. DELONGINGS WERE COLLECTED AND SENT HOME WITH PT. PT WHEELED OUT VIA WHEELCHAIR BY ALEJANDRO.
== END 2024-04-21 13:46 | disposition home health service (06) | DRG 871 ==
LOC: ER 15:52 → ERHOLD 21:16 → PCU 21:16 → MEDS 22:21 → PCU 04-15 02:23
PROVIDERS: Family Medicine; Hospitalist; Nurse Practitioner Acute Care; ADMIT Internal Medicine
PROC: 3E03329 Introduction of Other Anti-infective into Peripheral Vein, Percutaneous Approach (ICD-10-PCS; 2024-04-14)
PROC: 5A09357 Assistance with Respiratory Ventilation, Less than 24 Consecutive Hours, Continuous Positive Airway Pressure (ICD-10-PCS; principal; 2024-04-15)
DX: A41.9 Sepsis, unspecified organism (principal); J18.9 Pneumonia, unspecified organism; J96.01 Acute respiratory failure with hypoxia; E87.1 Hypo-osmolality and hyponatremia; J44.0 Chronic obstructive pulmonary disease with (acute) lower respiratory infection; J44.1 Chronic obstructive pulmonary disease with (acute) exacerbation; J90 Pleural effusion, not elsewhere classified; Z66 Do not resuscitate; I10 Essential (primary) hypertension; F32.A Depression, unspecified; E87.6 Hypokalemia; E83.42 Hypomagnesemia; F10.20 Alcohol dependence, uncomplicated; G31.84 Mild cognitive impairment of uncertain or unknown etiology; Z79.1 Long term (current) use of non-steroidal anti-inflammatories (NSAID); Z79.899 Other long term (current) drug therapy; Z79.2 Long term (current) use of antibiotics; Z85.3 Personal history of malignant neoplasm of breast; Z90.710 Acquired absence of both cervix and uterus; Z90.11 Acquired absence of right breast and nipple; Z90.49 Acquired absence of other specified parts of digestive tract; Z87.891 Personal history of nicotine dependence
CPT/HCPCS: 0202U; 36415; 70551; 71045; 71250; 80048; 80053; 80202; 82803; 83605; 83735; 83880; 84100; 85025; 87040; 87428-QW; 93306; 94640; 94660; 94664; 94760; 94761; 94762; 97110; 97112-CQ; 97116; 97161; 97165; 97530; 97535; 99285; A9270; J0456; J0696; J1650; J2543; J2919; J3370; J3475; J7030; J7040; J7050; J7512

== ENCOUNTER → 2024-04-14 | Outpatient (CLI) | payer OTHER ==
[~2024-04-14] MED LIST changes: +AMOCLA875 PO; +DOXY100 PO; +FURO20 PO; +Prednisone20 MG PO
[2024-04-14 13:18] LABS: BASOPHILS ABSOLUTE AUTO 0.02 K/mm3 (0.00-0.23); BASOPHILS PERCENT AUTO 0 % (0-2); EOSINOPHILS ABSOLUTE AUTO 0.01 K/mm3 (0.00-0.68); EOSINOPHILS PERCENT AUTO 0 % (0-6); Hematocrit 34.4 % (33.0-51.0); IMMATURE GRAN ABSOLUTE AUTO 0.05 K/mm3 (0.00-0.10); IMMATURE GRAN PERCENT AUTO 0 % (0-1); LYMPHOCYTES ABSOLUTE AUTO 0.84 K/mm3 (0.84-5.20); LYMPHOCYTES PERCENT AUTO 6 % (21-46); MONOCYTES ABSOLUTE AUTO 1.21 K/mm3 (0.16-1.47); MONOCYTES PERCENT AUTO 9 % (4-13); Mean Corpuscular Volume 87 fL (80-100); Mean Platelet Volume 9.6 fL (9.1-12.4); NEUTROPHILS ABSOLUTE AUTO 11.85 K/mm3 (1.96-9.15); NEUTROPHILS PERCENT AUTO 85 % (41-73); Platelet Count 231 K/mm3 (150-400); RDW Coefficient Variation 11.7 % (11.7-14.2); RDW Standard Deviation 37.3 fL (35.1-46.3); Red Blood Cell Count 3.94 M/mm3 (3.80-5.20); White Blood Cell Count 13.98 K/mm3 (4.00-11.30)
[2024-04-14 13:19] LABS: Mean Corpuscular HGB Conc 37.8 g/dL (31.5-36.5)
[2024-04-14 13:31] LABS: Albumin, Blood 2.2 g/dL (3.4-5.0); Albumin/Globulin Ratio 0.6 (0.8-1.8); Bilirubin, Total 0.8 mg/dL (0.1-1.0); Bun/Creatinine Ratio 16.1 (12.0-20.0); Calcium, Blood 9.6 mg/dL (8.5-10.1); Creatinine, Blood 0.87 mg/dL (0.40-1.00); Globulin, Blood 3.6 g/dL (2.2-4.0); Magnesium, Blood 1.5 mg/dL (1.6-2.4); Potassium, Blood 3.4 mmol/L (3.5-5.5); Total Protein, Blood 5.8 g/dL (6.4-8.2)
== END ==
LOC: LAB SHORT 13:14 → LAB 13:14
PROVIDERS: Chiropractor
DX: E87.1 Hypo-osmolality and hyponatremia (principal); R06.00 Dyspnea, unspecified
CPT/HCPCS: 80053; 83735; 85025